=== PATIENT | female | born 1970 | race Caucasian/White ===

== ENCOUNTER 2016-10-17 13:21 | Emergency (ER) | payer SELFPAY ==
[~2016-10-17] VITALS: Ht 162.6 cm; Wt 77.0 kg
[2016-10-17 13:23] VITALS: BP 175/93
[2016-10-17] MEDS ORDERED: CEFTAROLINE 600 MG in SODIUM CHLORIDE 0.9% 100 ML IV ONE (15:00)
[2016-10-17] MEDS ORDERED: SODIUM CHLORIDE FLUSH 10ML SYR IVF ONE (15:00)
[2016-10-17 15:09] LABS: BLOOD UREA NITROGEN 6 mg/dL (7-18)
== END 2016-10-17 17:47 | disposition home or self-care (01) ==
LOC: ED 16:21
DX: L03.011 Cellulitis of right finger (principal)
CPT/HCPCS: 36415; 73140; 80048; 82040; 85025; 96365; 99285; J0712

== ENCOUNTER 2016-10-18 11:25 | Emergency (ER) | payer SELFPAY ==
[~2016-10-18] VITALS: Ht 162.6 cm; Wt 78.3 kg
[2016-10-18 11:33] VITALS: BP 169/96
[2016-10-18] MEDS ORDERED: CEFTAROLINE 600 MG in SODIUM CHLORIDE 0.9% 100 ML IV ONE (13:00)
== END 2016-10-18 15:02 | disposition home or self-care (01) ==
LOC: ED 13:24
DX: L03.011 Cellulitis of right finger (principal)
CPT/HCPCS: 96365; 99285; J0712